=== PATIENT | male | born 1950 | race Caucasian/White ===

== ENCOUNTER 2019-08-23 11:35 | Day surgery (SDC) | payer MEDICARE, OTHER ==
[~2019-08-23] VITALS: Ht 182.9 cm; Wt 91.4 kg
[2019-08-23] MEDS ORDERED: HUMALOG MI100 UNIT/2 (12:27)
[2019-08-23] MEDS ORDERED: LISI20 PO (12:28)
[2019-08-23] MEDS ORDERED: ATEN25 PO (12:28)
[2019-08-23] MEDS ORDERED: OMEP20ER PO (12:28)
[2019-08-23] MEDS ORDERED: ZOCOR20 MG PO (12:29)
== END 2019-08-23 14:19 | disposition home or self-care (01) ==
LOC: ORSCSDS 11:35
PROVIDERS: Student in an Organized Health Care Education/Training Program
PROC: 0DBP8ZX Excision of Rectum, Via Natural or Artificial Opening Endoscopic, Diagnostic (ICD-10-PCS; principal; 2019-08-23 12:45)
PROC: 0DBN8ZX Excision of Sigmoid Colon, Via Natural or Artificial Opening Endoscopic, Diagnostic (ICD-10-PCS; principal; 2019-08-23 12:45)
PROC: 0DBL8ZX Excision of Transverse Colon, Via Natural or Artificial Opening Endoscopic, Diagnostic (ICD-10-PCS; principal; 2019-08-23 12:45)
DX: R19.4 Change in bowel habit (principal); D12.3 Benign neoplasm of transverse colon; D12.5 Benign neoplasm of sigmoid colon; K57.30 Diverticulosis of large intestine without perforation or abscess without bleeding; K62.89 Other specified diseases of anus and rectum; E10.21 Type 1 diabetes mellitus with diabetic nephropathy; I10 Essential (primary) hypertension; K64.8 Other hemorrhoids; E78.00 Pure hypercholesterolemia, unspecified; G47.30 Sleep apnea, unspecified; E05.90 Thyrotoxicosis, unspecified without thyrotoxic crisis or storm; Z79.4 Long term (current) use of insulin; Z79.899 Other long term (current) drug therapy
CPT/HCPCS: 82947; 88305; J2704; J7120

== ENCOUNTER 2019-08-29 20:39 | Emergency (ER) | payer MEDICARE, OTHER ==
[~2019-08-29] VITALS: Ht 188 cm; Wt 92.5 kg
[~2019-08-29 20:39] MED LIST: ATEN25 PO; HUMALOG MI100 UNIT/2; LISI20 PO; OMEP20ER PO; ZOCOR20 MG PO
[2019-08-29] MEDS ORDERED: NOVOLOG MI100 UNIT/2 (22:16)
[2019-08-29] MEDS ORDERED: POLYTRIM EYE DR10 M1 LEFTEYE (22:43)
== END 2019-08-29 23:12 | disposition home or self-care (01) ==
LOC: ER 20:39
DX: H10.9 Unspecified conjunctivitis (principal); I10 Essential (primary) hypertension; E11.9 Type 2 diabetes mellitus without complications; K21.9 Gastro-esophageal reflux disease without esophagitis; E78.5 Hyperlipidemia, unspecified; Z79.4 Long term (current) use of insulin; Z79.899 Other long term (current) drug therapy
CPT/HCPCS: 99282

== ENCOUNTER 2020-08-10 11:51 | Observation (INO) | payer MEDICARE ==
[~2020-08-10] VITALS: Ht 190.5 cm; Wt 108.9 kg
[~2020-08-10 11:51] MED LIST changes: -ATEN25 PO; +ATEN50 PO; +NOVOLOG MI100 UNIT/2 SC; +POLYTRIM EYE DR10 M1 LEFTEYE
[2020-08-10 12:59] LABS: BASOPHILS ABSOLUTE AUTO 0.07 K/mm3 (0.00-0.23); BASOPHILS PERCENT AUTO 1 % (0-2); EOSINOPHILS ABSOLUTE AUTO 0.08 K/mm3 (0.00-0.68); EOSINOPHILS PERCENT AUTO 1 % (0-6); Hematocrit 42.5 % (37.0-53.0); Hemoglobin 14.2 g/dL (13.5-17.5); IMMATURE GRAN ABSOLUTE AUTO 0.03 K/mm3 (0.00-0.10); IMMATURE GRAN PERCENT AUTO 0 % (0-1); LYMPHOCYTES ABSOLUTE AUTO 0.88 K/mm3 (0.84-5.20); LYMPHOCYTES PERCENT AUTO 8 % (21-46); MONOCYTES ABSOLUTE AUTO 0.76 K/mm3 (0.16-1.47); MONOCYTES PERCENT AUTO 7 % (4-13); Mean Corpuscular HGB 29.3 pg (26.0-34.0); Mean Corpuscular HGB Conc 33.4 g/dL (31.5-36.5); Mean Corpuscular Volume 88 fL (80-100); Mean Platelet Volume 10.6 fL (9.1-12.4); NEUTROPHILS ABSOLUTE AUTO 8.93 K/mm3 (1.96-9.15); NEUTROPHILS PERCENT AUTO 83 % (41-73); Platelet Count 253 K/mm3 (150-400); RDW Standard Deviation 41.6 fL (35.1-46.3); Red Blood Cell Count 4.85 M/mm3 (4.30-5.90); White Blood Cell Count 10.75 K/mm3 (4.00-11.30)
[2020-08-10 13:21] LABS: Troponin I <0.015 ng/mL (0.000-0.040)
[2020-08-10 13:22] LABS: Alanine Aminotransfer (ALT/SGP 20 U/L (12-78); Albumin, Blood 3.7 g/dL (3.4-5.0); Alk Phos 73 U/L (50-136); Anion Gap 4 mmol/L (6-16); Aspartate Aminotrans (AST/SGOT 15 U/L (12-37); Bilirubin, Total 0.5 mg/dL (0.1-1.0); Blood Urea Nitrogen 19 mg/dL (8-24); Bun/Creatinine Ratio 14.3 (12.0-20.0); CO2, Blood 26 mmol/L (21-32); Chloride, Blood 106 mmol/L (98-108); Creatinine, Blood 1.33 mg/dL (0.60-1.20); Globulin, Blood 3.8 g/dL (2.2-4.0); Glomerular Filtration Rate 57 (60-); Glucose, Blood 279 mg/dL (70-99); Sodium, Blood 136 mmol/L (136-145); Total Protein, Blood 7.5 g/dL (6.4-8.2)
[2020-08-10] MEDS ORDERED: Aspirin EC81 MG PO (17:56)
[2020-08-10 21:24] LABS: Source, Urine Catheter
[2020-08-10 21:26] LABS: Bilirubin, Urine Neg (Neg); Blood, Urine 5+ (Neg); Glucose Qualitative, Urine 4+ (Neg); Ketones, Urine 3+ (Neg); Leukocyte Esterase, Urine 1+ (Neg); Nitrite, Urine Neg (Neg); Protein, Urine 3+ (Neg); Specific Gravity, Urine 1.015 (1.003-1.022); Urobilinogen, Urine NORM (Normal)
[2020-08-10 21:33] LABS: Appearance, Urine Hazy (Clear); Color, Urine Yellow (P-Yellow)
[2020-08-10 21:34] LABS: Bacteria Rare /hpf; Red Blood Cells, Urine TNTC /hpf (0-2); Squamous Epithelial Cells Not Seen /hpf (Few)
[2020-08-11 04:46] LABS: Albumin, Blood 3.3 g/dL (3.4-5.0); Anion Gap 5 mmol/L (6-16); Blood Urea Nitrogen 20 mg/dL (8-24); Bun/Creatinine Ratio 11.9 (12.0-20.0); CO2, Blood 26 mmol/L (21-32); Calcium, Blood 8.9 mg/dL (8.5-10.1); Chloride, Blood 105 mmol/L (98-108); Creatinine, Blood 1.68 mg/dL (0.60-1.20); Glomerular Filtration Rate 43 (60-); Glucose, Blood 236 mg/dL (70-99); Phosphorus, Blood 3.5 mg/dL (2.5-4.9); Potassium, Blood 3.8 mmol/L (3.5-5.5); Sodium, Blood 136 mmol/L (136-145)
--- NOTE | 2020-08-11 06:47 | NUR ---
PT ADMITTED FROM ER FOR ACUTE RENAL FAILURE. A/O X4. PLEASANT AND COOPERATIVE. RESTING W/ EYES CLOSED. VSS. USES CALL LIGHT APPROPRIATELY. STRAINING URINE FROM PATENT F/C. BOWEL CARE PROVIDED FOR PT'S PREVIOUS C/O NO BM SINCE FRIDAY. NO RESULTS AT THIS TIME. WILL CONTINUE TO MONITOR.
--- NOTE | 2020-08-11 11:57 | NUR ---
REPORT GIVEN TO NANDA JUAREZ ON MEDICAL.
--- NOTE | 2020-08-11 12:33 | NUR ---
REPORT FRO PCU, RN JANNET AT 1200. PATIENT ARRIVED TO UNIT @1230.
[2020-08-12 05:00] LABS: Albumin, Blood 2.9 g/dL (3.4-5.0); Anion Gap 5 mmol/L (6-16); Blood Urea Nitrogen 22 mg/dL (8-24); Bun/Creatinine Ratio 11.6 (12.0-20.0); CO2, Blood 27 mmol/L (21-32); Calcium, Blood 8.5 mg/dL (8.5-10.1); Chloride, Blood 103 mmol/L (98-108); Creatinine, Blood 1.89 mg/dL (0.60-1.20); Glomerular Filtration Rate 38 (60-); Glucose, Blood 180 mg/dL (70-99); Phosphorus, Blood 3.5 mg/dL (2.5-4.9); Potassium, Blood 3.8 mmol/L (3.5-5.5); Sodium, Blood 135 mmol/L (136-145)
--- NOTE | 2020-08-12 06:26 | NUR ---
SUMMARY PT HAD SOME INCREASED CONFUSION DURING THE NIGHT. PT EASILY REDIRECTED. PT BOYLE DRAINING WELL. PT DISCOMFORT TX PER EMAR. PT SLEPT WELL T/O SHIFT. CALL LIGHT IN REACH AND BED ALARM ON.
--- NOTE | 2020-08-12 19:29 | NUR ---
END OF SHIFT SUMMARY: PATIENT URINE WAS CLEAR YELLOW THIS AM. DURING THE MORNING, THE PATIENT HAD AN EPISODE OF RIGHT SIDED BREAKTHROUGH PAIN, THAT THE PATIENT RATED "10/10". THIS PAIN WAS CONTROLLED WITH A DOSE OF PRN IV DILUDID PER ORDERS. PATIENT TOLERATED WELL AND EXPRESSED THAT HIS PAIN WENT AWAY. NO FURTHER PAIN FOR THE SHIFT. THE PATIENT DID HAVE SOME DARK YELLOW/REDDISH URINE DURING THE AFTERNOON. FOLLOWED BY CLEAR YELLOW URINE AGAIN. NO STONES FOUND IN THE BOYLE. THERE IS THE PRESENCE OF DARK RED/BROWN SEDIMENT. PATIENT UP TO THE CHAIR FOR ALL MEALS. PATIENT HAD AN ADEQUATE APPETITE. PATIENT DENIED NAUSEA, GASTRIC UPSET, OR ABDOMINAL CRAMPING. PATIENT REPORTED THAT HE FELT "WELL" DURING THE DAY. PATIENT DOES HAVE SOME CONFUSION AND REQUIRES MULTIPLE VERBAL CUES WITH COMMANDS. PATIENT ABLE TO EASILY FOLLOW COMMANDS.
[2020-08-13 05:19] LABS: Albumin, Blood 2.9 g/dL (3.4-5.0); Anion Gap 7 mmol/L (6-16); Blood Urea Nitrogen 14 mg/dL (8-24); Bun/Creatinine Ratio 13.5 (12.0-20.0); CO2, Blood 27 mmol/L (21-32); Calcium, Blood 8.5 mg/dL (8.5-10.1); Chloride, Blood 101 mmol/L (98-108); Creatinine, Blood 1.04 mg/dL (0.60-1.20); Glomerular Filtration Rate >60 (60-); Glucose, Blood 191 mg/dL (70-99); Phosphorus, Blood 3.3 mg/dL (2.5-4.9); Potassium, Blood 3.6 mmol/L (3.5-5.5); Sodium, Blood 135 mmol/L (136-145)
--- NOTE | 2020-08-13 06:07 | NUR ---
SUMMARY PT BECOMES INCREASINGLY CONFUSED AT NIGHT. PT REDIRECTS EASILY. PT DID PULL OUT HIS IV. PT APOLIGIZED AND STATED HE DID NOT REMEBER PULLING IV. PT HAS BEEN SLEEPING WELL. PT HAD NO COMPLAINTS. PT BOYLE DRAINING WELL. URINE STRAINED W/ NO STONES NOTED. CALL LIGHT IN REACH AND BED ALARM ON.
[2020-08-13] MEDS ORDERED: AMLO5 PO (14:32)
[2020-08-13] MEDS ORDERED: ACET325 PO (14:32)
[2020-08-13] MEDS ORDERED: DULCOLAX400 MG/5 M PO (14:33)
[2020-08-13] MEDS ORDERED: OXAYDO5 M1 PO (14:34)
[2020-08-13] MEDS ORDERED: TAMS.4ER PO (14:43)
[2020-08-13] MEDS ORDERED: MIRALAX17 G3 PO (14:43)
--- NOTE | 2020-08-13 16:21 | NUR ---
DISCHARGE SUMMARY PT DISCHARGE TODAY AT 1618, PT's PRESENT AT BEDSIDE DURING DISCHARGE PROCESS. PT VERBALIZED UNDERSTANDING OF DISCHARGE ORDERS. NO C/O PAIN OR ANY DISCOMFORT PRIOR TO D/C, NO ISSUES OR CONCERNS NOTED FROM PT OR FAMILY. BOYLE CATH DISCONTINUED PRIOR TO DISCHARGE. BLADDER TRAINING DONE PER PROTOCOL. PT VOIDED 110 CC VIA URINAL. DENIES DYSURIA. DISCHARGE PAPERWORK GIVEN TO PT UPON DISCHARGE.
== END 2020-08-13 16:20 | disposition home or self-care (01) ==
LOC: ER 11:51 → PCU 11:52 → MEDS 08-11 12:17
PROVIDERS: Emergency Medicine; Family Medicine; Nurse Practitioner Acute Care; Physician Assistant; ADMIT Internal Medicine
DX: N17.9 Acute kidney failure, unspecified (principal); K57.90 Diverticulosis of intestine, part unspecified, without perforation or abscess without bleeding; I10 Essential (primary) hypertension; N13.2 Hydronephrosis with renal and ureteral calculous obstruction; E11.9 Type 2 diabetes mellitus without complications; E78.5 Hyperlipidemia, unspecified; K21.9 Gastro-esophageal reflux disease without esophagitis; Z79.4 Long term (current) use of insulin; Z87.891 Personal history of nicotine dependence
CPT/HCPCS: 36415; 51702; 51798; 74176; 80048; 80053; 80069; 81001; 82947; 83690; 84443; 84484; 85025; 87086; 93005; 93010; 96375; 96376; 99285-25; A9270; G0378; J0360; J1170; J1815; J2270; J2405; J7030; J7120